=== PATIENT | female | born 1990 | race Caucasian/White ===

== ENCOUNTER 2025-10-22 18:53 | Emergency (ER) | payer MEDICARE, OTHER ==
[~2025-10-22] VITALS: Ht 167.6 cm; Wt 68.0 kg
[2025-10-22 19:38] LABS: PLATELET COUNT (AUTO) 217 K/uL (150-450); RED BLOOD CELL COUNT(AUTO) 3.81 MIL/uL (4.0-5.2); RED CELL DISTRIBUTION WIDTH 24.3 % (11.5-15.0); WHITE BLOOD COUNT (AUTO) 5.9 K/uL (4.3-11.0)
[2025-10-22 19:44] LABS: CALCIUM, SERUM 8.0 mg/dL (8.5-10.1); CREATININE 0.8 mg/dL (0.6-1.3); SODIUM SERUM 126 mmol/L (136-145); UREA NITROGEN, BLOOD 8 mg/dL (7-18)
[2025-10-22 19:57] LABS: ALCOHOL, BLOOD < 3 mg/dL (0-10); ASPARTATE AMINOTRANSFERASE 13 U/L (15-37); TOTAL PROTEIN, SERUM 6.3 g/dL (6.4-8.2)
[2025-10-22 21:29] LABS: APPEARANCE,URINE CLEAR (CLEAR); BLOOD, URINE NEGATIVE Ery/uL (NEGATIVE); LEUKOCYTE ESTERASE ,URINE 1+ (NEGATIVE); NITRITE, URINE NEGATIVE (NEGATIVE); UGLUCOSE NEGATIVE (NEGATIVE)
[2025-10-22 21:33] LABS: ADD URINE CULTURE YES; SQUAMOUS EPITHELIAL CELL,UR Few /HPF (None Seen)
[2025-10-22 21:41] LABS: AMPHETAMINE, URINE NEGATIVE (NEGATIVE); BARBITURATE, URINE NEGATIVE (NEGATIVE); BENZODIAZEPINE, URINE NEGATIVE (NEGATIVE); COCCAINE, URINE NEGATIVE (NEGATIVE); OPIATE, URINE NEGATIVE (NEGATIVE)
[2025-10-22 21:47] LABS: CANNABINOID, URINE POSITIVE (NEGATIVE)
[2025-10-22] MEDS: CEPHALEXIN MONOHYDRATE 500 MG CAPSULE PO ONE (22:12)
[2025-10-22] MEDS ORDERED: CEPHALEXIN MONOHYDRATE 500 MG CAPSULE PO ONE (22:12)
[2025-10-23 03:30] LABS: CALCIUM, SERUM 8.4 mg/dL (8.5-10.1); CREATININE 0.7 mg/dL (0.6-1.3); SODIUM SERUM 133.0 mmol/L (136-145); UREA NITROGEN, BLOOD 7.0 mg/dL (7-18)
[2025-10-23 09:03] VITALS: TEMP 98.4
[2025-10-23] MEDS ORDERED: OLANZAPINE 10 MG VIAL IM ONE (09:56)
[2025-10-23] MEDS ORDERED: IBUPROFEN 400 MG TABLET ONE (09:56)
[2025-10-23] MEDS: IBUPROFEN 400 MG TABLET PO ONE (09:58)
[2025-10-23] MEDS: OLANZAPINE 10 MG VIAL IM ONE (10:03)
[2025-10-23 10:19] VITALS: BP 112/71; O2SAT 96
== END 2025-10-23 10:12 ==
LOC: ER 19:03
DX: F25.9 Schizoaffective disorder, unspecified (principal); D64.9 Anemia, unspecified; N39.0 Urinary tract infection, site not specified; I10 Essential (primary) hypertension; F31.9 Bipolar disorder, unspecified; J45.909 Unspecified asthma, uncomplicated; M79.7 Fibromyalgia; Z88.2 Allergy status to sulfonamides; Z91.040 Latex allergy status
CPT/HCPCS: 99284; 85025; 80048 ×2; 87086; 80076; 81001; 36415 ×2; 80143; 80320; 80307; 96372; J3490; G0480